=== PATIENT | female | born 1960 | race Caucasian/White ===

== ENCOUNTER 2022-05-06 23:13 | Emergency (ER) | payer BC, SELFPAY ==
--- NOTE | 2022-05-06 23:21 | XRR_ITS ---
PROCEDURE INFORMATION: Exam: XR Right Humerus Exam date and time: 05/06/2022 11:39 PM Age: 61 years old Clinical indication: Injury or trauma; Fall; Blunt trauma (contusions or hematomas); Arm, upper; Right; Patient HX: Patient fell at hotel. Landed onto RT side. C/O RT shoulder, mid humeral, and knee pain. Limited rom. TECHNIQUE: Imaging protocol: Radiologic exam of the Right humerus. Views: 2 or more views. COMPARISON: CR (CHEST, ) 05/06/2022 11:34 PM FINDINGS: Bones/joints: Normal. Soft tissues: Normal. XR/[place] [id number] IMPRESSION: No acute findings.
--- NOTE | 2022-05-06 23:21 | XRR_ITS ---
PROCEDURE INFORMATION: Exam: XR Right Knee Exam date and time: 05/06/2022 11:43 PM Age: 61 years old Clinical indication: Injury or trauma; Fall; Blunt trauma; Right; Patient HX: Patient fell at hotel. Landed onto RT side. C/O RT shoulder, mid humeral, and knee pain. Limited rom. TECHNIQUE: Imaging protocol: Radiologic exam of the Right knee. Views: 3 views. COMPARISON: No relevant prior studies available. FINDINGS: Bones/joints: Normal. Soft tissues: Normal. XR/XR knee RT 3V* [id number] IMPRESSION: No acute findings.
--- NOTE | 2022-05-06 23:21 | XRR_ITS ---
PROCEDURE INFORMATION: Exam: XR Right Shoulder Exam date and time: 05/06/2022 11:34 PM Age: 61 years old Clinical indication: Injury or trauma; Fall; Blunt trauma (contusions or hematomas); Right; Patient HX: Patient fell at hotel. Landed onto RT side. C/O RT shoulder, mid humeral, and knee pain. Limited rom. TECHNIQUE: Imaging protocol: Radiologic exam of the Right shoulder. Views: 2 or more views. COMPARISON: No relevant prior studies available. FINDINGS: Bones/joints: Normal. Soft tissues: Normal. XR/XR shoulder RT min 2V* [id number] IMPRESSION: No acute findings.
--- NOTE | 2022-05-06 23:22 | ED_ITS ---
HPI - Fall General: Chief Complaint: Fall Stated Complaint: fall Time Seen by Provider: 05/06/22 23:18 Source: patient and EMS Mode of arrival: EMS Limitations: no limitations History of Present Illness: 61-year-old female states that she was at the hotel wearing shoes she is not used to wearing states she slipped and fell. States she fell forward she landed on her right knee along with her right lina ulder. States she has some knee pain she rates a 2 out of 10 and then she does have shoulder and arm pain she rates a 6 out of 10. States is much worse with movement. She denies any hip pain denies hitting her head denies any loss consciousness denies any chest pain. Associated symptoms-after fall: Denies abdominal pain, chest pain or headache(s) Review of Systems Const: Denies: fever(s), chills, body aches or change in appetite Eyes: Denies: blurry vision or eye discomfort ENMT: Denies: throat pain or dental pain Card: Denies: chest pain Resp: Denies: dyspnea GI: Denies: abdominal pain, nausea, vomiting or diarrhea : Denies: dysuria Musc: Reports: extremity pain and joint pain Skin/Breast: Denies: rash Neuro: Denies: headache(s) Psych: Denies: depression Mikel/Lymph: Denies: easy bruising All/Imm: Denies: urticaria PFSH ED PFSH: Medical History (Updated 05/07/22 @ 00:00 by Leanne Jurado MD) No pertinent past medical history Social History (Updated 05/06/22 @ 23:23 by Leanne Jurado MD) Substance/Drug Use: never Physical Exam Const: COMMON NORMALS: no acute distress, patient oriented x3 and healthy appearing HENMT: COMMON NORMALS: normocephalic and atraumatic HEAD & SCALP: normocephalic and atraumatic Eye: COMMON NORMALS: Equal, round and reactive pupils present and EOMs intact bilaterally PUPIL: Yes Equal, round and reactive pupils present Neck/C-Spine: COMMON NORMALS: full ROM and supple Chest: COMMONS NORMALS: normal inspection of the chest and normal palpation of entire chest wall Resp: COMMON NORMALS: normal respiratory effort, No retractions, No use of accessory muscles and clear to auscultation bilaterally AUSCULTATION: clear to auscultation bilaterally Cardio: COMMON NORMALS: regular rate, regular rhythm and No murmurs present (Cardio) RATE: regular rate RHYTHM: regular rhythm GI: COMMON NORMALS: Normal to inspection, nondistended, normoactive bowel sounds present, Soft to palpation, non-tender and no masses PALPATION: Yes Soft to palpation Extremity: NARRATIVE EXTREMITY EXAM: tenderness over right humerus and shoulder, mild tenderness over right knee no obvious deformity Neuro: COMMON NORMALS: patient oriented x3, moves all extremities and no focal motor deficits Psych: COMMON NORMALS: mental status grossly normal, Normal thought process present and cooperative THOUGHT PROCESS: Normal thought process present Skin: COMMON NORMALS: no rashes or lesions noted and no wounds GENERAL SKIN EXAM: no rashes or lesions noted Course Vital Signs: Vital signs: Vital Signs Temperature 98.0 F 05/06/22 23:24 Pulse Rate 87 05/06/22 23:24 Respiratory Rate 18 05/06/22 23:24 Blood Pressure 173/93 05/06/22 23:24 Pulse Oximetry 96 05/06/22 23:24 MDM - Fall Medical Decision Making Patient presents here with a shoulder sprain from a fall patient also has some slight knee pain x-ray shows no fracture x-ray of her shoulder is normal as well she does still have some pain with range of motion we will place her in a sling she is to follow-up with her PCP she is to ice the area as well. She had no head or neck injuries no other pain elsewhere. Discharge Plan Discharge Patient Disposition: Home Clinical Impression: Fall Sprain of right shoulder Qualifiers: Encounter type: initial encounter Shoulder sprain type: unspecified sprain Qualified Code(s): S43.401A - Unspecified sprain of right shoulder joint, initial encounter Prescriptions: New Naprosyn 500 mg tablet 500 mg PO BID PRN (Reason: pain) Qty: 20 0RF Discharge Orders: Discharge ED (Routine); Ordered 05/07/22 Ordered By: Leanne Jurado Discharge Diet: Advance as tolerated Discharge Activity: Resume usual activity Patient Instructions: Shoulder Sprain (ED) Coding Level of Care Code ED Cinema Operator for Torin Fwd Exam Comprehensive
[2022-05-06 23:24] VITALS: BP 173/93; PULSE 87; RESP 18; TEMP 36.7; O2SAT 96; BMI 29.2
[2022-05-06] MEDS: HYDROcodone-acetaminophen 5-325 mg Tablet 1 TAB PO (23:33)
== END 2022-05-07 00:15 | disposition home or self-care (01) ==
PROVIDERS: Emergency Provider Emergency Medicine
DX: S43.401A Unspecified sprain of right shoulder joint, initial encounter (principal); W01.0XXA Fall on same level from slipping, tripping and stumbling without subsequent striking against object, initial encounter
CPT/HCPCS: 73030; 73060; 73562; 99283